=== PATIENT | female | born 1960 | race Caucasian/White ===

== ENCOUNTER → 2021-05-17 | Outpatient (CLI) | payer OTHER | LOC: HEART CORB 10:34 | DX: R06.02 Shortness of breath (principal); R94.31 Abnormal electrocardiogram [ECG] [EKG]; J44.9 Chronic obstructive pulmonary disease, unspecified; I10 Essential (primary) hypertension; E78.5 Hyperlipidemia, unspecified; E11.9 Type 2 diabetes mellitus without complications; R00.0 Tachycardia, unspecified; I20.8 Other forms of angina pectoris | CPT/HCPCS: 78452; A9502 ==

== ENCOUNTER 2021-06-14 14:32 | Inpatient (IN) | payer OTHER ==
[~2021-06-14] VITALS: Ht 160 cm; Wt 53.5 kg
[2021-06-14 16:42] LABS: HEMOGLOBIN 10.6 gm/dl (12.3-15.3); RED BLOOD COUNT 3.74 M/UL (4.00-5.10); WHITE BLOOD COUNT 11.8 K/UL (4.5-11.0)
[2021-06-14] MEDS ORDERED: HYDROCHLOROTHIA25 MG PO (17:03)
[2021-06-14] MEDS ORDERED: PROAIR DIGIHAL90 MCG INH (17:03)
[2021-06-14] MEDS ORDERED: METOPROLOL SUCC50 MG PO (17:03)
[2021-06-14] MEDS ORDERED: ATORVASTATIN CA20 MG PO (17:04)
[2021-06-14] MEDS ORDERED: AMLODIPINE BESYL5 MG PO (17:04)
[2021-06-14] MEDS ORDERED: ELIQUIS5 MG PO (17:04)
[2021-06-14] MEDS ORDERED: LOSARTAN POTAS100 MG PO (17:04)
[2021-06-14] MEDS ORDERED: ROPINIROLE HCL0.5 MG PO (17:05)
[2021-06-14] MEDS ORDERED: LEVEMIR FL100 UNIT/1 SQ (17:05)
[2021-06-14] MEDS ORDERED: SYMBICORT 160-1 INHA INH (17:05)
[2021-06-14] MEDS ORDERED: IPRAT-ALBUT 0.5-3 ML NEB (17:06)
[2021-06-14] MEDS ORDERED: SPIRIVA HANDIH18 MCG INH (17:06)
[2021-06-14] MEDS ORDERED: DILTIAZEM 24HR240 M1 PO (17:07)
[2021-06-14] MEDS ORDERED: METFORMIN HCL500 MG PO (17:07)
[2021-06-14 17:10] LABS: BUN/CREATININE RATIO 15 (0-10)
[2021-06-15 02:25] LABS: HEMOGLOBIN 10.3 gm/dl (12.3-15.3); RED BLOOD COUNT 3.66 M/UL (4.00-5.10); WHITE BLOOD COUNT 12.6 K/UL (4.5-11.0)
[2021-06-15 03:00] LABS: BUN/CREATININE RATIO 20 (0-10)
[2021-06-16 06:49] LABS: HEMOGLOBIN 9.3 gm/dl (12.3-15.3)
[2021-06-16 06:50] LABS: RED BLOOD COUNT 3.28 M/UL (4.00-5.10); WHITE BLOOD COUNT 9.4 K/UL (4.5-11.0)
[2021-06-16 08:14] LABS: BUN/CREATININE RATIO 45 (0-10)
[2021-06-17 04:24] LABS: HEMOGLOBIN 9.5 gm/dl (12.3-15.3); RED BLOOD COUNT 3.33 M/UL (4.00-5.10); WHITE BLOOD COUNT 9.6 K/UL (4.5-11.0)
[2021-06-17 04:39] LABS: BUN/CREATININE RATIO 37 (0-10)
[2021-06-17] MEDS ORDERED: TOPROL XL25 MG PO (16:11)
[2021-06-17] MEDS ORDERED: CATAPRES 0.1MG0.1 MG PO (16:11)
[2021-06-17] MEDS ORDERED: DILTIAZEM 24HR360 MG PO (16:11)
[2021-06-17] MEDS ORDERED: ASPIRIN EC81 MG PO (16:11)
[2021-06-17] MEDS ORDERED: DOXYCYCLINE HY100 M2 PO (16:15)
[2021-06-17] MEDS ORDERED: MEDROL DOSEPAK 24 MG PO (16:15)
== END 2021-06-17 17:32 | disposition home or self-care (01) | DRG 189 ==
LOC: PROG CARE 14:32
PROVIDERS: Internal Medicine; Physician Assistant; ADMIT Internal Medicine
PROC: B24BZZZ Ultrasonography of Heart with Aorta (ICD-10-PCS; principal; 2021-06-15)
DX: J96.22 Acute and chronic respiratory failure with hypercapnia (principal); I21.A1 Myocardial infarction type 2; J44.1 Chronic obstructive pulmonary disease with (acute) exacerbation; Z20.822 Contact with and (suspected) exposure to COVID-19; I10 Essential (primary) hypertension; E78.5 Hyperlipidemia, unspecified; E04.1 Nontoxic single thyroid nodule; D64.9 Anemia, unspecified; I48.0 Paroxysmal atrial fibrillation; E11.9 Type 2 diabetes mellitus without complications; R53.81 Other malaise; J30.2 Other seasonal allergic rhinitis; I07.1 Rheumatic tricuspid insufficiency; I27.20 Pulmonary hypertension, unspecified; I16.0 Hypertensive urgency; F17.210 Nicotine dependence, cigarettes, uncomplicated; R00.0 Tachycardia, unspecified; Z79.01 Long term (current) use of anticoagulants; Z79.4 Long term (current) use of insulin; Z99.81 Dependence on supplemental oxygen; Z86.73 Personal history of transient ischemic attack (TIA), and cerebral infarction without residual deficits; Z79.82 Long term (current) use of aspirin; Z98.891 History of uterine scar from previous surgery; Z90.49 Acquired absence of other specified parts of digestive tract; Z88.6 Allergy status to analgesic agent; Z82.49 Family history of ischemic heart disease and other diseases of the circulatory system; Z80.1 Family history of malignant neoplasm of trachea, bronchus and lung; Z71.6 Tobacco abuse counseling
CPT/HCPCS: ECHO; 36415; 36600; 71045; 71046; 80053; 81001; 82550; 82553; 82803; 82962; 83605; 83735; 83880; 84484; 85025; 85027; 85730; 93005; 93306; 93880; 94640; 94664; 94760; 97161; J0360; J1644; J2920